=== PATIENT | male | born 1960 | race Caucasian/White ===

== ENCOUNTER 2017-02-04 11:47 | Day surgery (SDC) | payer OTHER ==
[2017-02-02 08:32] VITALS: BP 161/103
[~2017-02-04] VITALS: Ht 188 cm; Wt 57.0 kg
[~2017-02-04 11:47] MED LIST: CHOL10003 PO; CREON PO; DOXEPIN PO; OXYC1TAB7 PO; PANT20TA3 PO; VITAMIN B1 PO; VITAMIN B12 PO
[2017-02-04] MEDS ORDERED: LACTATED RINGERS 1,000 ML IV SCH (12:37)
[2017-02-04] MEDS ORDERED: FENTANYL PF 100 MCG/2ML ONE (12:53)
[2017-02-04] MEDS ORDERED: MIDAZOLAM 1 MG/ML, 2ML ONE (12:53)
[2017-02-04] MEDS ORDERED: LIDOCAINE 1%, 2ML SQ PRN (13:00)
[2017-02-04] MEDS ORDERED: GLYCOPYRROLATE 0.2MG/1ML, 5ML ONE (13:31)
[2017-02-04] MEDS ORDERED: PROPOFOL 10 MG/ML, 20ML ONE (13:31)
[2017-02-04] MEDS ORDERED: ETHYL ALCOHOL 98%, 5 ML ONE (14:12)
[2017-02-04] MEDS ORDERED: TRIAMCINOLONE ACETONIDE 40 MG/ML, 1ML ONE (14:12)
[2017-02-04] MEDS ORDERED: BUPIVACAINE/PF 0.25% ONE (14:12)
== END 2017-02-04 16:05 ==
LOC: OUT 11:47
PROVIDERS: ATTEND Internal Medicine Gastroenterology
DX: K86.1 Other chronic pancreatitis (principal); E78.00 Pure hypercholesterolemia, unspecified; I10 Essential (primary) hypertension; Z98.890 Other specified postprocedural states; F17.210 Nicotine dependence, cigarettes, uncomplicated
CPT/HCPCS: 43248; 43259; J2250; J2704; J3010; J3301; J3490; J7120